=== PATIENT | male | born 1970 | race Caucasian/White ===

== ENCOUNTER 2017-11-24 07:46 | Day surgery (SDC) | payer OTHER ==
[~2017-11-24] VITALS: Ht 182.9 cm; Wt 80.2 kg
[~2017-11-24 07:46] MED LIST: MULT-658 PO; OXYC-302 PO; TAMS-11 PO
[2017-11-24] MEDS ORDERED: LACTATED RINGERS 1,000 ML IV SCH (08:27)
[2017-11-24] MEDS ORDERED: MIDAZOLAM 1 MG/ML, 2ML ONE (09:41)
[2017-11-24] MEDS ORDERED: FENTANYL PF 250 MCG/5ML ONE (09:41)
[2017-11-24] MEDS ORDERED: FENTANYL PF 100 MCG/2ML IV PRN (12:30)
[2017-11-24] MEDS ORDERED: hydrALAzine 20 MG/ML, 1ML IV PRN (12:30)
[2017-11-24] MEDS ORDERED: OXYcodone 5 MG/5 ML ORAL.SOL UDC PO PRN (12:30)
[2017-11-24] MEDS ORDERED: ALBUTEROL SULFATE 2.5 MG/3 ML NPPB PRN (12:30)
[2017-11-24] MEDS ORDERED: PROMETHAZINE 25 MG/ML, 1ML IV PRN (12:30)
[2017-11-24] MEDS ORDERED: LABETALOL 5MG/ML, 20ML IV PRN (12:30)
[2017-11-24] MEDS ORDERED: ACETAMINOPHEN 325 MG TABLET PO PRN (12:30)
[2017-11-24] MEDS ORDERED: MEPERIDINE/PF 25MG/0.5ML IVPush PRN (12:30)
[2017-11-24] MEDS ORDERED: LORazepam 2 MG/ML, 1ML IVPush PRN (12:30)
[2017-11-24] MEDS ORDERED: OMNIPAQUE 180 MG/ML, 20ML VIAL ONE (13:53)
[2017-11-24] MEDS ORDERED: ACETAMINOPHEN 650 MG/20.3 ML UDC ONE (13:57)
[2017-11-24] MEDS ORDERED: OXYcodone 5 MG/5 ML ORAL.SOL UDC ONE (13:57)
[2017-11-24] MEDS ORDERED: HYDROmorphone 2 MG/ML, 1ML ONE (14:03)
[2017-11-24] MEDS: HYDROmorphone 1 MG/ML, 1ML IV PRN ×2 (14:07→14:18)
[2017-11-24] MEDS ORDERED: CEFAZOLIN 1,000 MG ONE (15:20)
[2017-11-24] MEDS ORDERED: PROPOFOL 10 MG/ML, 50ML ONE (15:20)
[2017-11-24] MEDS ORDERED: PROPOFOL 10 MG/ML, 20ML ONE (15:20)
[2017-11-24] MEDS ORDERED: ONDANSETRON 2MG/ML, 2ML ONE (15:20)
[2017-11-24] MEDS ORDERED: DEXAMETHASONE 4 MG/ML, 1ML ONE (15:20)
[2017-11-24] MEDS ORDERED: SUCCINYLCHOLINE 20 MG/ML, 10ML ONE (15:20)
== END 2017-11-24 15:45 ==
LOC: OUT 07:46
PROVIDERS: ATTEND Orthopaedic Surgery Orthopaedic Surgery of the Spine
DX: M48.54XA Collapsed vertebra, not elsewhere classified, thoracic region, initial encounter for fracture (principal); M54.5 Low back pain
CPT/HCPCS: 22513; 72072; 88307; 88311; 88342; C1713; J0330; J0690; J1100; J1170; J2250; J2405; J2704; J3010; J7120; Q9965; G0461